=== PATIENT | female | born 1940 | race Caucasian/White ===

== ENCOUNTER → 2020-11-07 02:33 | Outpatient (CLI) | payer MEDICARE, SELFPAY ==
[2020-11-07 20:23] LABS: SARS-CoV-2 RNA PCR Negative
== END ==
PROVIDERS: PCP Internal Medicine; Visit Provider Internal Medicine Gastroenterology
DX: Z01.812 Encounter for preprocedural laboratory examination (principal); Z20.822 Contact with and (suspected) exposure to COVID-19
CPT/HCPCS: C9803; U0003; U0005

== ENCOUNTER 2020-11-10 01:25 | Day surgery (SDC) | payer MEDICARE, OTHER, SELFPAY ==
[2020-11-05 14:43] VITALS: BMI 30.2
[2020-11-10 08:28] VITALS: BP 152/96; PULSE 102; RESP 18; TEMP 36.4; O2SAT 99
--- NOTE | 2020-11-10 08:36 | WPDANESEPPF ---
Anes - Initial Pre Proc Eval Procedure: Operation Date: 11/10/20 09:30 Proposed Procedures p Esophagogastroduodenoscopy & Colonoscopy - Tian Melendez MD Date/Time: 11/10/20 08:36 Surgeon: Tian Melendez MD Pre Op Diagnosis: Iron Def. Anemia Patient Data Age: 80 Gender: F Height: 5 ft 4 in Weight: 77.5 kg Last Vital Signs Temp 36.4 C 11/10/20 08:28 Pulse 102 H 11/10/20 08:28 Resp 18 11/10/20 08:28 BP 152/96 H 11/10/20 08:28 Pulse Ox 99 11/10/20 08:28 Allergies Allergy/AdvReac Type Severity Reaction Status Date / Time No Known Allergies Allergy Verified 11/10/20 08:10 Home Medications Medication Instructions Recorded Confirmed Type aspirin [Adult Low Dose Aspirin] 81 mg PO DAILY 06/16/19 11/10/20 History hizwflwv-ojar-YE-calcium-mins 1 tablet PO DAILY 06/16/19 11/10/20 History [Women's One Daily] vit C,E,zinc,copper-gsggk1c 250 1 cap PO DAILY 07/25/19 11/10/20 History mg-lutein 5 mg-zeaxanthin 1 mg capsule omega-3 fatty acids 1,000 mg 2,000 mg PO BID cap 02/04/20 11/10/20 History capsule enalapril maleate 5 mg tablet 5 mg PO BID #180 tablet 05/11/20 11/10/20 Rx levothyroxine 25 mcg tablet See Rx Instructions .ROUTE 07/30/20 11/10/20 Rx .COMPLEX #90 tablet metoprolol succinate 25 mg See Rx Instructions .ROUTE 09/18/20 11/10/20 Rx tablet,extended release 24 hr .COMPLEX #90 tablet metoprolol succinate 50 mg See Rx Instructions .ROUTE 09/18/20 11/10/20 Rx tablet,extended release 24 hr .COMPLEX #90 tablet rosuvastatin 40 mg tablet See Rx Instructions .ROUTE 09/18/20 11/10/20 Rx .COMPLEX #90 tablet famotidine 40 mg tablet See Rx Instructions .ROUTE BID 11/05/20 11/10/20 Rx #180 tablet ferrous sulfate 325 mg (65 mg 325 mg PO BID #180 tablet 11/05/20 11/10/20 Rx iron) tablet sod picosulf 10 mg-magnes 3.5 160 ml PO BID #160 ml 11/05/20 11/10/20 Rx gram-citric 12 gram/160 mL oral solution Patient hx anesthesia problems: none Family hx anesthesia problems: none PMFSH Past Medical History Medical History Anemia Benign essential hypertension BMI 30.0-30.9,adult BMI 31.0-31.9,adult Cavernous hemangiomas Cystocele Elevated homocysteine Encounter for Medicare annual wellness exam Encounter for routine adult health examination with abnormal findings Encounter for routine adult health examination without abnormal findings Encounter for screening mammogram for malignant neoplasm of breast Encounter for screening mammogram for malignant neoplasm of breast Gallbladder sludge GERD (gastroesophageal reflux disease) Grade II diastolic dysfunction Hyperlipidemia Hypothyroidism Hypothyroidism (acquired) Iron deficiency anemia Macular degeneration Microscopic hematuria 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 drug therapy Pre-diabetes Pulmonary hypertension PVCs (premature ventricular contractions) Ventricular tachycardia Vitamin D deficiency Surgical History Surgical History S/P total hysterectomy Family History Family History Father Cancer Mother Hypertension Sibling Lung cancer Son Kidney stones Unknown Diabetes mellitus Cancer Social History Social History Smoking status: Never smoker Second hand tobacco smoke exposure: No Alcohol intake: never Substance use: never Substance use type: does not use Living arrangements: with family Spiritual care concerns: No Anes - Eval Final PreProcedure Day of Procedure 11/10/20 08:36 Patient weight: overweight Heart: regular rate and rhythm Lungs: clear to auscultation Airway: Mallampati scale class II Neurological: alert and oriented Last oral intake: >/= 8 hours ASA classification: III Emergent: no Anesthetic plan: proceed Anesthesia t
[2020-11-10] MEDS: LACTATED RINGERS 1,000 ML 150 ML IV CONT (08:37)
--- NOTE | 2020-11-10 09:09 | PM.HPGS ---
History of Present Illness History of Present Illness Consent: Risks, benefits, and alternatives have been discussed and questions answered. Patient agrees to proceed with procedure. Chief complaint: Iron Def. Anemia Narrative: Ethel Woods is a 80 year old female With iron deficiency anemia Review of Systems Review of Systems: All systems reviewed & are unremarkable except as noted in HPI and below PMFSH Past Medical History Medical History Anemia Benign essential hypertension BMI 30.0-30.9,adult BMI 31.0-31.9,adult Cavernous hemangiomas Cystocele Elevated homocysteine Encounter for Medicare annual wellness exam Encounter for routine adult health examination with abnormal findings Encounter for routine adult health examination without abnormal findings Encounter for screening mammogram for malignant neoplasm of breast Encounter for screening mammogram for malignant neoplasm of breast Gallbladder sludge GERD (gastroesophageal reflux disease) Grade II diastolic dysfunction Hyperlipidemia Hypothyroidism Hypothyroidism (acquired) Iron deficiency anemia Macular degeneration Microscopic hematuria 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 drug therapy Pre-diabetes Pulmonary hypertension PVCs (premature ventricular contractions) Ventricular tachycardia Vitamin D deficiency Surgical History Surgical History S/P total hysterectomy Family History Family History Father Cancer Mother Hypertension Sibling Lung cancer Son Kidney stones Unknown Diabetes mellitus Cancer Social History Social History Smoking status: Never smoker Second hand tobacco smoke exposure: No Alcohol intake: never Substance use: never Substance use type: does not use Living arrangements: with family Spiritual care concerns: No Meds Home Medications and Allergies Home Medications Medication Instructions Recorded Confirmed Type aspirin [Adult Low Dose Aspirin] 81 mg PO DAILY 06/16/19 11/10/20 History vcqdgfew-uwyo-YI-calcium-mins 1 tablet PO DAILY 06/16/19 11/10/20 History [Women's One Daily] vit C,E,zinc,copper-ohqvt9s 250 1 cap PO DAILY 07/25/19 11/10/20 History mg-lutein 5 mg-zeaxanthin 1 mg capsule omega-3 fatty acids 1,000 mg 2,000 mg PO BID cap 02/04/20 11/10/20 History capsule enalapril maleate 5 mg tablet 5 mg PO BID #180 tablet 05/11/20 11/10/20 Rx levothyroxine 25 mcg tablet See Rx Instructions .ROUTE 07/30/20 11/10/20 Rx .COMPLEX #90 tablet metoprolol succinate 25 mg See Rx Instructions .ROUTE 09/18/20 11/10/20 Rx tablet,extended release 24 hr .COMPLEX #90 tablet metoprolol succinate 50 mg See Rx Instructions .ROUTE 09/18/20 11/10/20 Rx tablet,extended release 24 hr .COMPLEX #90 tablet rosuvastatin 40 mg tablet See Rx Instructions .ROUTE 09/18/20 11/10/20 Rx .COMPLEX #90 tablet famotidine 40 mg tablet See Rx Instructions .ROUTE BID 11/05/20 11/10/20 Rx #180 tablet ferrous sulfate 325 mg (65 mg 325 mg PO BID #180 tablet 11/05/20 11/10/20 Rx iron) tablet sod picosulf 10 mg-magnes 3.5 160 ml PO BID #160 ml 11/05/20 11/10/20 Rx gram-citric 12 gram/160 mL oral solution Allergies Allergy/AdvReac Type Severity Reaction Status Date / Time No Known Allergies Allergy Verified 11/10/20 08:10 Vital Signs Vital Signs - 24 hr 11/10/20 08:28 Temperature 36.4 C Pulse Rate 102 H Respiratory Rate 18 Blood Pressure 152/96 H Pulse Oximetry 99 Exam Const: General: alert Orientation/consciousness: patient oriented x3 Resp: Auscultation: clear to auscultation bilaterally Cardio: Rhythm: regular rhythm GI: GI Palp: Yes Soft to palpation and No Tenderness to palpation present (GI) Neuro: General: patient oriented x3 Assessment and Plan A
[2020-11-10 09:50] VITALS: BP 83/62; PULSE 70; RESP 19; O2SAT 96
[2020-11-10 10:00] VITALS: BP 103/67; PULSE 68; RESP 17; O2SAT 96
[2020-11-10 10:10] VITALS: BP 113/68; PULSE 72; RESP 18; O2SAT 96
[2020-11-10 10:18] VITALS: BP 135/72; PULSE 71; RESP 18; O2SAT 97
== END 2020-11-10 10:20 | disposition home or self-care (01) ==
PROVIDERS: PCP Internal Medicine; Visit Provider Internal Medicine Gastroenterology
PROC: 0DJ08ZZ Inspection of Upper Intestinal Tract, Via Natural or Artificial Opening Endoscopic (ICD-10-PCS; CPT 43235; principal; 2020-11-10 09:30)
DX: D50.9 Iron deficiency anemia, unspecified (principal); K44.9 Diaphragmatic hernia without obstruction or gangrene; E78.5 Hyperlipidemia, unspecified; I11.9 Hypertensive heart disease without heart failure; E03.9 Hypothyroidism, unspecified; R73.03 Prediabetes; K21.9 Gastro-esophageal reflux disease without esophagitis; H35.30 Unspecified macular degeneration; E55.9 Vitamin D deficiency, unspecified; I27.20 Pulmonary hypertension, unspecified
CPT/HCPCS: 45378; 43239; 88305; J2704; J7120

== ENCOUNTER 2020-11-11 08:01 | Outpatient (CLI) | payer MEDICARE, OTHER, SELFPAY ==
--- NOTE | ~2020-11-11 | CT_ITS ---
EXAMINATION: CT abdomen pelvis wo con DATE: 11/11/2020 08:25 INDICATION: Microscopic hematuria TECHNIQUE: Computed tomography (CT) of the abdomen and pelvis was performed without intravenous contr ast. The dose-length product was 367.80 mGy-cm. Automated exposure control and iterative reconstructi on technique were employed. COMPARISON: Ultrasound dated 06/16/2019. FINDINGS: Lung bases are unremarkable. Heart size normal. No significant pleural or pericardial effus ion. Mild atherosclerosis without aneurysm. No lymphadenopathy. There are multiple liver masses, larg est in the right hepatic lobe measuring 3.3 x 2.7 cm. Moderate size hiatal hernia. The spleen, adrena l glands, pancreas are unremarkable. There are multiple parapelvic cysts of the kidneys. There are no renal stones or significant hydronephrosis. Bladder is unremarkable. Nonobstructive bowel gas patter n. No abnormal pelvic masses or fluid collections. Moderate lumbar spondylosis with dextroscoliosis. There is osteoarthritis of the hips. No lytic or blastic lesions. IMPRESSION: 1. No findings to account for hematuria. Bilateral parapelvic cysts. 2: Multiple liver masses, largest measuring up to 3.3 cm greatest axial dimension. There are at least 4 masses identified scattered throughout the liver. Recommend further evaluation with dynamic contra st-enhanced CT or MRI. 3: Moderate size hiatal hernia. Reviewed, dictated and finalized at location B. IMPRESSION: 1. No findings to account for hematuria. Bilateral parapelvic cysts. 2: Multiple liver masses, largest measuring up to 3.3 cm greatest axial dimensi on. There are at least 4 masses identified scattered throughout the liver. Karlo mmend further evaluation with dynamic contrast-enhanced CT or MRI. 3: Moderate size hiatal hernia.
== END 2020-11-11 08:02 | disposition home or self-care (01) ==
PROVIDERS: PCP Internal Medicine; Visit Provider Internal Medicine
DX: R31.29 Other microscopic hematuria (principal); K44.9 Diaphragmatic hernia without obstruction or gangrene; M16.0 Bilateral primary osteoarthritis of hip; R16.0 Hepatomegaly, not elsewhere classified; M47.816 Spondylosis without myelopathy or radiculopathy, lumbar region
CPT/HCPCS: 74176

== ENCOUNTER 2021-04-09 11:07 | Outpatient (CLI) | payer MEDICARE, OTHER, SELFPAY ==
--- NOTE | ~2021-04-09 | US_ITS ---
EXAMINATION: US thyroid EXAM DATE: 04/09/2021 11:51 INDICATION: E04.1 - Nontoxic single thyroid nodule. TECHNIQUE: Multiple grayscale and Doppler images of the thyroid were obtained (by a technologist who performed the scan) and subsequently reviewed. Individual nodules and recommendations may be reporte d in accordance with TI-RADS system as designated by the 2017 ACR White Paper TI-RADS committee. The re is no prior study for comparison. FINDINGS: Right thyroid lobe measures 4.5 x 1.2 x 1.4 cm and the left measuring 4.5 x 1.3 x 0.9 cm. Diffusely h eterogeneous thyroid parenchyma with possible right thyroid lobe nodule measuring 1.9 x 1.0 cm. IMPRESSION: Heterogeneous thyroid parenchyma with possible right thyroid lobe nodule. Recommend one -year follow-up ultrasound. Reviewed, dictated and finalized at location A. IMPRESSION: Heterogeneous thyroid parenchyma with possible right thyroid lobe n odule. Recommend one-year follow-up ultrasound.
== END 2021-04-09 11:08 | disposition home or self-care (01) ==
PROVIDERS: PCP Internal Medicine; Visit Provider Internal Medicine
DX: E04.1 Nontoxic single thyroid nodule (principal)
CPT/HCPCS: 76536

== ENCOUNTER 2021-05-08 07:27 | Emergency (ER) | payer MEDICARE, OTHER, SELFPAY ==
--- NOTE | ~2021-05-08 | XR_ITS ---
EXAMINATION: XR chest 2V EXAM DATE: 05/08/2021 07:47 INDICATION: Chest pain down left shoulder, arrhythmia. Left shoulder pain. TECHNIQUE: Frontal and lateral projections of the chest obtained and reviewed. Comparison is made to prior examination from 09/16/2018. FINDINGS: There is moderate sliding gastroesophageal hiatal hernia. The lungs are clear. There are n o pleural effusions. The cardiomediastinal silhouette is within normal limits. There is no pneumoth orax suspected. The bones and soft tissues are unremarkable. There is no significant interval [place]. IMPRESSION: No acute cardiopulmonary findings. Moderate hiatal hernia. Reviewed, dictated and finalized at location A.
[2021-05-08 07:30] VITALS: BP 192/109; PULSE 130; RESP 20; TEMP 36.6; O2SAT 97
--- NOTE | 2021-05-08 07:36 | ECG_ITS ---
Measurements Intervals [place] Rate: 81 P: 29 NC: 150 QRS: 3 QRSD: 73 T: 12 QT: 345 QTc: 402 Interpretive Statements SINUS RHYTHM VENTRICULAR PREMATURE COMPLEX LOW QRS VOLTAGE IN PRECORDIAL LEADS CONSIDER INFERIOR INFARCT, AGE INDETERMINATE BORDERLINE ST ABNORMALITY- ANTEROLAT/HIGH LAT LEADS BASELINE ARTIFACT- I, III, AVR, AVL, AVF ABNORMAL ECG Electronically Signed On 05-08-2021 14:13:13 CDT by Zeyad Keen D.O.
[2021-05-08 07:46] LABS: Basophils Percent Auto 0.5 % (0.2-1.2); Eosinophils Absolute Auto 0.4 K/mm3 (0-0.3); Eosinophils Percent Auto 5.7 % (0-4.4); Hematocrit 44.5 % (37.0-47.0); Hemoglobin 14.4 g/dL (12.0-15.0); Immature Granulocyte Absolute 0.02 K/mm3 (0.00-0.031); Immature Granulocyte Percent A 0.3 % (0-0.5); Lymphocytes Absolute Auto 3.54 K/mm3 (0.9-3.2); Lymphocytes Percent Auto 47.1 % (18.3-44.2); Mean Corpuscular HGB Conc 32.4 g/dl (32-36); Mean Corpuscular Hemoglobin 31.4 pg (26-34); Mean Corpuscular Volume 97.2 fl (80-100); Mean Platelet Volume 11.4 fl (7.4-10.4); Monocytes Absolute Auto 0.5 K/mm3 (0.1-0.6); Monocytes Percent Auto 7.2 % (2.6-8.5); Neutrophils Absolute Auto 2.9 K/mm3 (1.3-6.7); Neutrophils Percent Auto 39.2 % (45.5-73.1); Platelet Count Result 168 k/mm3 (150-375); Red Blood Count 4.58 M/mm3 (4.2-5.4); Red Cell Distribution Width 13.8 % (11.5-14.5); White Blood Count 7.5 K/mm3 (4.5-10.0)
[2021-05-08 07:59] LABS: Anion Gap 9 mmol/L (8-16); Blood Urea Nitrogen 17 mg/dL (7-17); Calcium 9.3 mg/dL (8.4-10.2); Carbon Dioxide 26 mmol/L (22-30); Chloride 107 mmol/L (98-107); Estimated CRCL calculation 58 ml/min; Estimated Glomerular Filt Rate > 60; Glucose 121 mg/dL (65-110); Potassium 3.5 mmol/L (3.4-5.0); Sodium 142 mmol/L (137-145)
[2021-05-08 08:03] LABS: INR 0.9; Prothrombin Time 12.5 Seconds (11.1-14.7)
[2021-05-08 08:04] LABS: Partial Thromboplastin Time 31.7 SECONDS (22.3-36.8)
[2021-05-08 08:11] LABS: Troponin I < 0.012 ng/mL (0.000-0.034)
--- NOTE | 2021-05-08 08:17 | ED.ARRPALP ---
HPI - Arrhythmia/Palpitations General Chief Complaint: Arrhythmia/Palpitations Stated Complaint: cp, heart racing Time Seen by Provider: 05/08/21 07:43 History of Present Illness HPI narrative: Patient presents with palpitations left arm pain and left leg pain. Patient reports she woke up with her her symptoms she took her blood pressure and noted her heart rate was in the 120s and she had elevated blood pressure. She took her home enalapril and metoprolol and came to the ER for evaluation. At the time my evaluation she reports feeling much improved and her symptoms have resolved she is feeling palpitations and her pain has gone away. Reports yesterday she felt well she denies any recent fevers, cough, congestion. She denies any associated shortness of breath Related Data Home Medications Medication Instructions Recorded Confirmed Women's One Daily 1 tablet PO DAILY 06/16/19 03/31/21 aspirin [Adult Low Dose Aspirin] 81 mg PO DAILY 06/16/19 03/31/21 vit C,E,zinc,copper-dsnjc2e 250 1 cap PO DAILY 07/25/19 03/31/21 mg-lutein 5 mg-zeaxanthin 1 mg capsule omega-3 fatty acids 1,000 mg 2,000 mg PO BID cap 02/04/20 03/31/21 capsule Allergies Allergy/AdvReac Type Severity Reaction Status Date / Time No Known Allergies Allergy Verified 03/31/21 09:36 Review of Systems Review of Systems: CONSTITUTIONAL: Denies fever, chills, or sweats. EYES: Denies visual changes, redness, or discharge. ENT: Denies rhinorrhea, congestion, sore throat, or otalgia. CARDIOVASCULAR: Denies chest pain, palpitations, or edema. RESPIRATORY: Denies cough or dyspnea. GASTROINTESTINAL: Denies abdominal pain, nausea, vomiting, or diarrhea. GENITOURINARY: Denies dysuria or hematuria. SKIN: Denies rash or itching. MUSCULOSKELETAL: Denies back pain, active joint pain, or myalgia. NEUROLOGIC: Denies headache, numbness, dizziness, or weakness. PSYCHIATRIC: Denies anxiety or depression. All systems reviewed & are unremarkable except as noted in HPI and below PMFSH Past Medical History Medical History Anemia Benign essential hypertension BMI 30.0-30.9,adult BMI 31.0-31.9,adult Cavernous hemangiomas Chest pain Colon cancer screening Cystocele Elevated homocysteine Encounter for Medicare annual wellness exam Encounter for routine adult health examination with abnormal findings Encounter for routine adult health examination without abnormal findings Encounter for screening mammogram for malignant neoplasm of breast Encounter for screening mammogram for malignant neoplasm of breast Gallbladder sludge GERD (gastroesophageal reflux disease) Grade II diastolic dysfunction Hyperlipidemia Hypothyroidism Hypothyroidism (acquired) Iron deficiency anemia Macular degeneration Microscopic hematuria On termination clerk drug therapy On snf drug therapy Pre-diabetes Pulmonary hypertension PVCs (premature ventricular contractions) Thyroid nodule Ventricular tachycardia Vitamin D deficiency Surgical History Surgical History S/P total hysterectomy Family History Family History Father Cancer Mother Hypertension Sibling Lung cancer Son Kidney stones Unknown Diabetes mellitus Cancer Social History Social History Smoking status: Never smoker Second hand tobacco smoke exposure: No Alcohol intake: never Substance use: never Substance use type: does not use Spiritual care concerns: No Exam Narrative: GENERAL: Well-appearing, well-nourished, and in no acute distress. HEAD: Normocephalic, atraumatic. EYES: PERRLA and EOMI. ENT: Nares clear, no rhinorrhea or epistaxis. Mucous membranes moist. NECK: Supple. No masses. No JVD CHEST: Clear to auscultation. No respiratory distress. No wheezes rales or rhonchi HEA
[2021-05-08 08:22] VITALS: BP 126/79; PULSE 77; RESP 19; O2SAT 95
[2021-05-08] MEDS: ASPIRIN 81 MG CHEWABLE TABLET 324 MG PO (08:22)
[2021-05-08 09:55] VITALS: BP 123/81; PULSE 74; RESP 18; O2SAT 98
== END 2021-05-08 09:56 | disposition home or self-care (01) ==
PROVIDERS: Emergency Provider Emergency Medicine; PCP Internal Medicine
DX: R00.0 Tachycardia, unspecified (principal); I10 Essential (primary) hypertension; E78.5 Hyperlipidemia, unspecified; E03.9 Hypothyroidism, unspecified; D50.9 Iron deficiency anemia, unspecified; H35.30 Unspecified macular degeneration; R73.03 Prediabetes; K21.9 Gastro-esophageal reflux disease without esophagitis; E55.9 Vitamin D deficiency, unspecified; M79.602 Pain in left arm
CPT/HCPCS: 36415; 71046; 80048; 84484; 85025; 85610; 85730; 93005; 99284; A9270

== ENCOUNTER → 2021-11-12 02:49 | Outpatient (CLI) | payer MEDICARE, OTHER, SELFPAY ==
[2021-11-12 11:37] LABS: SARS-CoV-2 RNA PCR Positive
== END ==
PROVIDERS: PCP Internal Medicine; Visit Provider Internal Medicine
DX: U07.1 COVID-19 (principal); R68.89 Other general symptoms and signs
CPT/HCPCS: C9803; U0003; U0005

== ENCOUNTER 2022-02-22 14:04 | Emergency (ER) | payer MEDICARE, OTHER, SELFPAY ==
--- NOTE | ~2022-02-22 | XR_ITS ---
EXAMINATION: XR finger 3rd RT min 2V DATE: 02/22/2022 15:05 INDICATION: Right hand third digit laceration. TECHNIQUE: 3 views of right hand third digit were obtained. COMPARISON: None. FINDINGS: There is ulnar subluxation of third distal phalanx with respect to the middle phalanx. No f racture. There is severe osteoarthritis of third distal interphalangeal joint and mild osteoarthritis of third proximal interphalangeal joint. No radiopaque foreign body. IMPRESSION: 1. Polyarticular osteoarthritis. Reviewed, dictated and finalized at location A.
[2022-02-22 14:30] VITALS: BP 138/73; PULSE 79; RESP 16; TEMP 36.5; O2SAT 96
[2022-02-22] MEDS: TETANUS,DIPHTHERIA,AC PERTUSSIS ADULT (0.5 ML) BOOSTRIX IM (15:09)
--- NOTE | 2022-02-22 15:39 | ED.WOUNDLAC ---
HPI - Wound/Laceration General Chief Complaint: Wound/Laceration Stated Complaint: R. middle finger lac Time Seen by Provider: 02/22/22 14:40 Source: patient and RN notes reviewed Mode of arrival: ambulatory Limitations: no limitations History of Present Illness HPI narrative: This is a right hand dominant 81 year old female who presents for evaluation right 3rd finger injury. She states she was trying to help her wash the car. Her finger got caught in between the car door and metal objection. She had 2 lacerations to her finger and her primary care provider sent her to ER for care. She has pain with movement of her finger. She is unsure of her last tetanus. She denies numbness or tingling. Onset (ago): hour(s) (1) Location: other (finger) Extremity Location: Right: hand Patient tetanus UTD: No Context: accidental Associated symptoms: pain Treatments prior to arrival: bandage Related Data Home Medications Medication Instructions Recorded Confirmed aspirin 81 mg tablet,delayed 81 mg PO DAILY 06/16/19 02/01/22 release (Adult Low Dose Aspirin) multivit-iron 18 mg-folic acid 400 1 tablet PO DAILY 06/16/19 02/01/22 mcg-calcium 500 mg-minerals tablet (Women's One Daily) vit C,E,zinc,copper-cskme8v 250 1 cap PO DAILY 07/25/19 02/01/22 mg-lutein 5 mg-zeaxanthin 1 mg capsule (Ocuvite Adult 50 Plus) omega-3 fatty acids 1,000 mg 2,000 mg PO BID 02/04/20 02/01/22 capsule (Fish Oil Concentrate) Allergies Allergy/AdvReac Type Severity Reaction Status Date / Time No Known Allergies Allergy Verified 02/22/22 14:43 Review of Systems Constitutional: Constitutional: Denies chills Musculoskeletal: Musculoskeletal: Reports arthralgias PMFSH Past Medical History Medical History Anemia Atrial tachycardia Benign essential hypertension BMI 30.0-30.9,adult BMI 30.0-30.9,adult BMI 31.0-31.9,adult Cavernous hemangiomas Chest heaviness Chest pain Colon cancer screening Cystocele DJD (degenerative joint disease) Elevated homocysteine Encounter for Medicare annual wellness exam Encounter for routine adult health examination with abnormal findings Encounter for routine adult health examination without abnormal findings Encounter for screening mammogram for malignant neoplasm of breast Encounter for screening mammogram for malignant neoplasm of breast Follow up Gallbladder sludge GERD (gastroesophageal reflux disease) Grade II diastolic dysfunction Hyperlipidemia Hypothyroidism Hypothyroidism (acquired) Iron deficiency anemia Macular degeneration Medial epicondylitis, left elbow Microscopic hematuria 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 Pre-diabetes PVCs (premature ventricular contractions) Thyroid nodule Ventricular tachycardia Vitamin D deficiency Surgical History Surgical History S/P total hysterectomy Family History Family History Father Cancer Mother Hypertension Sibling Lung cancer Son Kidney stones Unknown Diabetes mellitus Cancer Social History Social History Smoking status: Never smoker Second hand tobacco smoke exposure: No Alcohol intake: never Substance use: never Substance use type: does not use Spiritual care concerns: No Exam Const: General: no acute distress and alert Nutritional Appearance: well nourished Orientation/consciousness: patient oriented x3 Limitations: no limitations HENMT: Head: normal to inspection Eyes: EOM: EOMs intact bilaterally Resp: Effort & Inspection: normal respiratory effort Skin: Wounds: wounds noted (right 3rd finger, see MSK) Neuro: General: patient oriented x3 and moves all extremities Extrem: Other: right 3rd finger with 2 laceration of dorsum, proximal lacera
[2022-02-22 16:46] VITALS: BP 125/82; PULSE 62; RESP 18; O2SAT 100
== END 2022-02-22 16:47 | disposition home or self-care (01) ==
PROVIDERS: Emergency Provider General Practice; PCP Internal Medicine
DX: S61.212A Laceration without foreign body of right middle finger without damage to nail, initial encounter (principal); M19.90 Unspecified osteoarthritis, unspecified site; D64.9 Anemia, unspecified; I10 Essential (primary) hypertension; K21.9 Gastro-esophageal reflux disease without esophagitis; E03.9 Hypothyroidism, unspecified; E78.5 Hyperlipidemia, unspecified; W26.8XXA Contact with other sharp object(s), not elsewhere classified, initial encounter; Z23 Encounter for immunization
CPT/HCPCS: 12002; 73140; 90715; 99283

== ENCOUNTER 2022-06-21 12:34 | Outpatient (CLI) | payer MEDICARE, OTHER, SELFPAY ==
--- NOTE | ~2022-06-21 | XR_ITS ---
EXAM: XR shoulder LT min 2V DATE: 06/21/2022 12:55 HISTORY: M25.512 - Pain in left shoulder, GENERAL, NO INJURY, . COMPARISON: None available. FINDINGS: Decreased mineralization. No fracture or dislocation. No lytic or blastic lesion. Mild AC joint hypertrophy. Subcortical cystic changes in the superolateral humeral head. No erosion or perios teal change. Soft tissues within normal limits. IMPRESSION: Osteopenia. Mild degenerative changes at the AC joint and glenohumeral joint in the left shoulder. Reviewed, dictated and finalized at location K. E LINER IMPRESSION: Osteopenia. Mild degenerative changes at the AC joint and glenohume ral joint in the left shoulder.
== END 2022-06-21 12:35 | disposition home or self-care (01) ==
LOC: ANHIMG 12:38
PROVIDERS: PCP Internal Medicine; Visit Provider Internal Medicine
DX: M85.812 Other specified disorders of bone density and structure, left shoulder (principal); M19.012 Primary osteoarthritis, left shoulder
CPT/HCPCS: 73030

== ENCOUNTER 2023-02-21 09:33 | Outpatient (CLI) | payer MEDICARE, OTHER, SELFPAY ==
--- NOTE | ~2023-02-21 | CT_ITS ---
EXAMINATION: CT abdomen pelvis w con INDICATION: Diarrhea, unspecified TECHNIQUE: Computed tomographic images of the abdomen and pelvis were obtained after the administrati on of 100 cc of Omnipaque 350 intravenous contrast. The dose-length product (DLP) was 717.77 mGy-cm. Automated exposure control and iterative reconstruction technique were employed. COMPARISON: 11/11/2020 FINDINGS: There is mild dependent atelectasis at the visualized lung bases. Cardiomegaly is noted. Th ere is a small sliding hiatal hernia. There are multiple liver lesions. The largest measures 2.9 cm i n the right hepatic lobe and demonstrates interrupted peripheral nodular enhancement, consistent with a hemangioma. A smaller masses likely reflect cysts or hemangiomas. No suspicious liver mass is iden tified.. The spleen, pancreas, gallbladder, and adrenal glands are normal. There are peripelvic cysts of the kidneys. Hypoattenuating lesions in the kidneys, measuring up to 6 mm on the right, are too s mall to characterize but likely represent cysts. No pathologically enlarged abdominal or pelvic lymph nodes are identified. No free intraperitoneal gas or evidence of bowel obstruction. The appendix is normal. There is severe thoracic and lumbar spondylosis. There is an umbilical hernia containing fat. IMPRESSION: 1. No CT correlate for the patient's symptoms. Reviewed, dictated and finalized at location L.
[2023-02-21 10:43] LABS: Basophils Percent Auto 0.7 % (0.2-1.2); Eosinophils Absolute Auto 0.2 K/mm3 (0-0.3); Eosinophils Percent Auto 2.7 % (0-4.4); Hematocrit 43.6 % (37.0-47.0); Hemoglobin 13.9 g/dL (12.0-15.0); Immature Granulocyte Absolute 0.02 K/mm3 (0.00-0.031); Immature Granulocyte Percent A 0.4 % (0-0.5); Lymphocytes Absolute Auto 1.82 K/mm3 (0.9-3.2); Lymphocytes Percent Auto 32.7 % (18.3-44.2); Mean Corpuscular HGB Conc 31.9 g/dl (32-36); Mean Corpuscular Hemoglobin 29.4 pg (26-34); Mean Corpuscular Volume 92.4 fl (80-100); Mean Platelet Volume 12.1 fl (7.4-10.4); Monocytes Absolute Auto 0.4 K/mm3 (0.1-0.6); Monocytes Percent Auto 7.4 % (2.6-8.5); Neutrophils Absolute Auto 3.1 K/mm3 (1.3-6.7); Neutrophils Percent Auto 56.1 % (45.5-73.1); Platelet Count Result 164 k/mm3 (150-375); Red Blood Count 4.72 M/mm3 (4.2-5.4); Red Cell Distribution Width 13.5 % (11.5-14.5); White Blood Count 5.6 K/mm3 (4.5-10.0)
[2023-02-21 10:49] LABS: Estimated Glomerular Filt Rate > 60
[2023-02-21 10:58] LABS: Alanine Aminotransferase 106 U/L (6-35); Albumin Level 3.8 g/dL (3.5-5.1); Alkaline Phosphatase 34 U/L (38-126); Anion Gap 3 mmol/L (8-16); Aspartate Amino Transferase 90 U/L (14-36); Bilirubin,Total 0.5 mg/dL (0.2-1.3); Blood Urea Nitrogen 9 mg/dL (7-17); Calcium 8.7 mg/dL (8.4-10.2); Carbon Dioxide 28 mmol/L (22-30); Chloride 106 mmol/L (98-107); Estimated Glomerular Filt Rate > 60; Glucose 99 mg/dL (65-110); Sodium 137 mmol/L (137-145)
== END 2023-02-21 09:34 | disposition home or self-care (01) ==
PROVIDERS: PCP Internal Medicine; Visit Provider Internal Medicine
DX: R19.7 Diarrhea, unspecified (principal)
CPT/HCPCS: 36415; 74177; 80053; 85025; Q9967

== ENCOUNTER 2023-04-07 00:54 | Day surgery (SDC) | payer MEDICARE, OTHER, SELFPAY ==
[2023-03-24 14:28] VITALS: BMI 29.5
--- NOTE | 2023-04-06 15:31 | PM.HPGS ---
History of Present Illness History of Present Illness Consent: Risks, benefits, and alternatives have been discussed and questions answered. Patient agrees to proceed with procedure. Chief complaint: GERD Narrative: Ethel Woods is a 82 year old female referred for investigation of acid reflux. Six years ago she had an EGD that revealed a small hiatal hernia and mild reflux changes. She had been taking famotidine but that is currently on hold. Review of Systems Review of Systems: All systems reviewed & are unremarkable except as noted in HPI and below PMFSH Past Medical History Medical History Anemia Atrial tachycardia Benign essential hypertension BMI 28.0-28.9,adult BMI 29.0-29.9,adult BMI 30.0-30.9,adult BMI 30.0-30.9,adult BMI 31.0-31.9,adult Cavernous hemangiomas Change in bowel habits Chest heaviness Chest pain Colon cancer screening Cystocele DJD (degenerative joint disease) Elevated homocysteine Encounter for Medicare annual wellness exam Encounter for routine adult health examination with abnormal findings Encounter for routine adult health examination without abnormal findings Encounter for screening mammogram for malignant neoplasm of breast Encounter for screening mammogram for malignant neoplasm of breast FHx: abdominal aortic aneurysm Follow up Gallbladder sludge GERD (gastroesophageal reflux disease) Grade II diastolic dysfunction Heart palpitations History of vitamin D deficiency Hyperlipidemia Hypothyroidism Hypothyroidism (acquired) Iron deficiency anemia Kidney lesion Bilateral Left shoulder pain Liver lesion Hemangioma Macular degeneration Medial epicondylitis, left elbow Microscopic hematuria Neck pain on left side On fci drug therapy On rodent exterminator drug therapy Pre-diabetes PVCs (premature ventricular contractions) Thyroid nodule Ventricular tachycardia Vitamin D deficiency Surgical History Surgical History Hx of hysterectomy S/P total hysterectomy Family History Family History Father Cancer Mother Hypertension Sibling Lung cancer Son Kidney stones Unknown Diabetes mellitus Cancer Social History Social History Smoking status: Never smoker Second hand tobacco smoke exposure: No Alcohol intake: current Alcohol use details: socially Substance use: never Substance use type: does not use Lack of Transportation: No Lack of Food: Never True Current Housing: I Have Housing Concerned About Future Housing: No Difficulty Paying Gas/Electric Bills: No Difficulty Paying for Meds: No Currently Unemployed: No Education: Trade/Vocational Certificate Difficulty w/ Childcare or Family Care: No Living arrangements: with family Gender identity (if verbalized by the patient): Female Spiritual care concerns: No Meds Home Medications and Allergies Home Medications Medication Instructions Recorded Confirmed Type aspirin 81 mg tablet,delayed 81 mg PO DAILY 06/16/19 03/24/23 History release (Adult Low Dose Aspirin) multivit-iron 18 mg-folic acid 400 1 tablet PO DAILY 06/16/19 03/24/23 History mcg-calcium 500 mg-minerals tablet (Women's One Daily) vit C,E,zinc,copper-[id number] 250 1 cap PO DAILY 07/25/19 03/24/23 History mg-lutein 5 mg-zeaxanthin 1 mg capsule (Ocuvite Adult 50 Plus) omega-3 fatty acids 1,000 mg 2,000 mg PO BID 02/04/20 03/24/23 History capsule (Fish Oil Concentrate) famotidine 40 mg tablet See Rx Instructions .Route BID 09/15/21 03/24/23 Rx #180 tabs metoprolol succinate 50 mg 75 mg PO BID #180 tabs 02/01/22 04/07/23 Rx tablet,extended release 24 hr cholecalciferol (vitamin D3) 50 50 mcg PO DAILY 11/04/22 03/24/23 History mcg (2,000 unit) capsule levothyroxine 50 mcg tab
[2023-04-07 09:01] VITALS: BP 152/85; PULSE 81; RESP 20; TEMP 36.2; O2SAT 97
[2023-04-07] MEDS: LACTATED RINGERS 1,000 ML 150 ML IV CONT (09:10)
--- NOTE | 2023-04-07 09:33 | WPDANESEPPF ---
Anes - Initial Pre Proc Eval Procedure: Operation Date: 04/07/23 10:00 Proposed Procedures p Esophagogastroduodenoscopy - Tian Melendez MD Date/Time: 04/07/23 09:33 Surgeon: Tian Melendez MD Pre Op Diagnosis: GERD Patient Data Age: 82 Gender: F Height: 1.63 m Weight: 78 kg Last Vital Signs Temp 36.2 C L 04/07/23 09:01 Pulse 81 04/07/23 09:01 Resp 20 04/07/23 09:01 BP 152/85 H 04/07/23 09:01 Pulse Ox 97 04/07/23 09:01 O2 Del Method Room Air 04/07/23 09:01 Allergies Allergy/AdvReac Type Severity Reaction Status Date / Time No Known Allergies Allergy Verified 04/07/23 09:00 Home Medications Medication Instructions Recorded Confirmed Type aspirin 81 mg tablet,delayed 81 mg PO DAILY 06/16/19 03/24/23 History release (Adult Low Dose Aspirin) multivit-iron 18 mg-folic acid 400 1 tablet PO DAILY 06/16/19 03/24/23 History mcg-calcium 500 mg-minerals tablet (Women's One Daily) vit C,E,zinc,copper-[id number] 250 1 cap PO DAILY 07/25/19 03/24/23 History mg-lutein 5 mg-zeaxanthin 1 mg capsule (Ocuvite Adult 50 Plus) omega-3 fatty acids 1,000 mg 2,000 mg PO BID 02/04/20 03/24/23 History capsule (Fish Oil Concentrate) famotidine 40 mg tablet See Rx Instructions .Route BID 09/15/21 03/24/23 Rx #180 tabs metoprolol succinate 50 mg 75 mg PO BID #180 tabs 02/01/22 04/07/23 Rx tablet,extended release 24 hr cholecalciferol (vitamin D3) 50 50 mcg PO DAILY 11/04/22 03/24/23 History mcg (2,000 unit) capsule levothyroxine 50 mcg tablet See Rx Instructions .Route 12/08/22 04/07/23 Rx .COMPLEX #90 tabs rosuvastatin 20 mg tablet 20 mg PO DAILY #90 tabs 03/15/23 03/24/23 Rx enalapril maleate 5 mg tablet See Rx Instructions .Route 04/03/23 Rx .COMPLEX #180 tabs Patient hx anesthesia problems: none Family hx anesthesia problems: none Results Review: All pre-operative results and documents have been reviewed as part of the pre-operative evaluation. [facility] Past Medical History Medical History Anemia Atrial tachycardia Benign essential hypertension BMI 28.0-28.9,adult BMI 29.0-29.9,adult BMI 30.0-30.9,adult BMI 30.0-30.9,adult BMI 31.0-31.9,adult Cavernous hemangiomas Change in bowel habits Chest heaviness Chest pain Colon cancer screening Cystocele DJD (degenerative joint disease) Elevated homocysteine Encounter for Medicare annual wellness exam Encounter for routine adult health examination with abnormal findings Encounter for routine adult health examination without abnormal findings Encounter for screening mammogram for malignant neoplasm of breast Encounter for screening mammogram for malignant neoplasm of breast FHx: abdominal aortic aneurysm Follow up Gallbladder sludge GERD (gastroesophageal reflux disease) Grade II diastolic dysfunction Heart palpitations History of vitamin D deficiency Hyperlipidemia Hypothyroidism Hypothyroidism (acquired) Iron deficiency anemia Kidney lesion Bilateral Left shoulder pain Liver lesion Hemangioma Macular degeneration Medial epicondylitis, left elbow Microscopic hematuria Neck pain on left side On skilled nursing drug therapy On terminal superintendent drug therapy Pre-diabetes PVCs (premature ventricular contractions) Thyroid nodule Ventricular tachycardia Vitamin D deficiency Surgical History Surgical History Hx of hysterectomy S/P total hysterectomy Family History Family History Father Cancer Mother Hypertension Sibling Lung cancer Son Kidney stones Unknown Diabetes mellitus Cancer Social History Social History Smoking status: Never smoker Second hand tobacco smoke exposure: No Alcohol intake: current Alcohol use details: socially Substance use: never Substance use
[2023-04-07 09:58] VITALS: BP 95/54; PULSE 68; RESP 15; O2SAT 95
[2023-04-07 10:08] VITALS: BP 100/62; PULSE 69; RESP 16; O2SAT 97
[2023-04-07 10:18] VITALS: BP 111/77; PULSE 70; RESP 20; O2SAT 96
== END 2023-04-07 10:25 | disposition home or self-care (01) ==
PROVIDERS: PCP Internal Medicine; Visit Provider Internal Medicine Gastroenterology
PROC: 0DJ08ZZ Inspection of Upper Intestinal Tract, Via Natural or Artificial Opening Endoscopic (ICD-10-PCS; CPT 43235; principal; 2023-04-07 10:00)
DX: K21.9 Gastro-esophageal reflux disease without esophagitis (principal); K22.2 Esophageal obstruction; K44.9 Diaphragmatic hernia without obstruction or gangrene; I11.9 Hypertensive heart disease without heart failure; I47.1 Supraventricular tachycardia; E78.5 Hyperlipidemia, unspecified; E03.9 Hypothyroidism, unspecified; I49.3 Ventricular premature depolarization; E55.9 Vitamin D deficiency, unspecified; Z79.82 Long term (current) use of aspirin
CPT/HCPCS: 43239; 88305; J2704; J7120

== ENCOUNTER 2023-07-24 11:46 | Outpatient (CLI) | payer MEDICARE, OTHER, SELFPAY ==
--- NOTE | ~2023-07-24 | XR_ITS ---
EXAMINATION: XR chest 2V w apical lordotic DATE: 07/24/2023 12:12 INDICATION: Abnormal weight loss. TECHNIQUE: Anteroposterior, apical lordotic, and lateral views of the chest on 4 radiographs were obt ained. COMPARISON: Chest 2 views 05/08/2021, CT abdomen and pelvis 02/21/2023 FINDINGS: There is mild atelectasis in left lower lung zone. No pleural effusion or pneumothorax. Car diomegaly is noted. There is a moderate-sized hiatal hernia. IMPRESSION: 1. Mild atelectasis in left lower lung zone. 2. Cardiomegaly. 3. Moderate-sized hiatal hernia. Reviewed, dictated and finalized at location A. TION CONSULTANT
== END 2023-07-24 11:47 | disposition home or self-care (01) ==
PROVIDERS: PCP Internal Medicine; Visit Provider Internal Medicine
DX: R63.4 Abnormal weight loss (principal); K44.9 Diaphragmatic hernia without obstruction or gangrene; I51.7 Cardiomegaly
CPT/HCPCS: 71047

== ENCOUNTER 2024-05-08 13:14 | Outpatient (CLI) | payer MEDICARE, OTHER, SELFPAY ==
--- NOTE | ~2024-05-08 | US_ITS ---
EXAMINATION: US renal BI DATE: 05/08/2024 14:30 INDICATION: Disorder of kidney and ureter TECHNIQUE: Multiple ultrasound grayscale images of the kidneys were obtained. COMPARISON: CT dated 02/21/2023 FINDINGS: The right kidney measures 11.2 x 5.9 x 5.7 cm. The left kidney measures 11.0 x 5.4 x 5.2 cm. The kidn eys demonstrate normal echogenicity. Again seen are anechoic parapelvic cysts at both kidneys measuri ng up to 4.0 x 1.8 x 1.8 cm at the right kidney and 2.1 x 1.4 x 1.2 cm on the left. There is no hydro nephrosis in either kidney. No stones identified. The bladder is normal. IMPRESSION: 1. Parapelvic cysts at both kidneys. No hydronephrosis. Reviewed, dictated and finalized at location A.
--- NOTE | ~2024-05-08 | US_ITS ---
EXAMINATION: US thyroid DATE: 05/08/2024 14:30 INDICATION: Thyroid nodule. TECHNIQUE: Multiple ultrasound images of the thyroid were obtained. COMPARISON: 04/09/2021. FINDINGS: The right thyroid lobe measures 2.0 x 1.1 x 1.3 cm. The left thyroid lobe measures 3.3 x 1.9 x 0.9 c m. There is heterogeneous echogenicity throughout the thyroid gland. Slightly hypoechoic, smoothly m arginated, wider than tall right thyroid nodule with mixed cystic and solid components to 2.0 cm, wit h fine punctate internal calcifications (TR 4). Normal vascular flow is present. IMPRESSION: Moderately suspicious 2.0 cm right thyroid nodule, recommend further evaluation with FNA. Heterogeneous thyroid gland as can be seen with Aron's and Graves' disease. Reviewed, dictated and finalized at location K. IMPRESSION: Moderately suspicious 2.0 cm right thyroid nodule, recommend further evaluation with FNA. Heterogeneous thyroid gland as can be seen with Aron's and Graves' disease .
== END 2024-05-08 13:15 | disposition home or self-care (01) ==
LOC: ANHIMG 13:15
PROVIDERS: PCP Internal Medicine; Visit Provider Internal Medicine
DX: E04.1 Nontoxic single thyroid nodule (principal); N28.9 Disorder of kidney and ureter, unspecified
CPT/HCPCS: 76536; 76775

== ENCOUNTER 2024-06-20 15:44 | Outpatient (CLI) | payer MEDICARE, OTHER, SELFPAY ==
--- NOTE | ~2024-06-20 | XR_ITS ---
Cervical Spine: AP, lateral, open-mouth views Clinical History: Pain Findings: The normal lordotic curve is maintained. No acute fracture evident. There is 2-3 mm retroli sthesis of C2 over C3. There is severe degenerative spurring at C2-C3 and C6-C7. There is moderate to moderate degenerative disc change in the remainder of the cervical spine. There is severe facet arth ropathy throughout the cervical spine. No instability evident on flexion or extension views. Pre-vert ebral soft tissues are unremarkable. Impression: Advanced degenerative spondylosis, as above. 2-3 mm retrolisthesis of C2 over C3. Reviewed, dictated and finalized at location M. MANAGER Impression: Advanced degenerative spondylosis, as above. 2-3 mm retrolisthesis of C2 over C3.
== END 2024-06-20 15:45 | disposition home or self-care (01) ==
LOC: ANHIMG 15:46
PROVIDERS: PCP Internal Medicine; Visit Provider Internal Medicine
DX: M47.892 Other spondylosis, cervical region (principal); M43.12 Spondylolisthesis, cervical region
CPT/HCPCS: 72050

== ENCOUNTER 2024-09-26 10:06 | Outpatient (CLI) | payer MEDICARE, OTHER, SELFPAY ==
--- NOTE | ~2024-09-26 | CT_ITS ---
Clinical Indication: Hypertension CT Scan of the Chest and Abdomen, with Contrast: Technique: Contiguous sections were acquired throughout the chest and abdomen after intravenous admin istration of 100 cc of Omnipaque 350. Dose reduction technique was used on this scan by utilizing au tomated exposure control and iterative reconstruction technique. The dose-length product (DLP) was 69 1.68 mGy-cm. Comparison: 02/21/2023 Findings: There is no evidence of any significant mediastinal, hilar or axillary lymphadenopathy. The mediastin al soft tissues appear normal. No pulmonary embolus. No aortic aneurysm or dissection. There is no evidence of pleural or pericardial effusion. The lungs are clear, aside from minimal dependent atelectatic changes. 2.0 hypodense right hepatic lobe mass is similar to prior exam, most likely hemangioma (axial image 9 3). Additional peripherally enhancing hypodense lesion at the right hepatic lobe is also essentially stable from prior exam (axial image 124). The spleen, pancreas, gallbladder, and adrenal glands are w ithin normal limits. Bilateral parapelvic renal cysts are present. No evidence of aortic aneurysm. N o lymphadenopathy. Moderate hiatal hernia present. Otherwise, visualized bowel loops are unremarkable. No ascites. Small fat-containing umbilical hernia noted. Impression: No acute abnormality evident. Stable hypodense hepatic lesions, most likely benign lesions such as hemangiomas. Bilateral parapelvic renal cysts. Moderate hiatal hernia. Small fat-containing umbilical hernia. Reviewed, dictated and finalized at [facility]. ATION ONCOLOGY NURSE Impression: No acute abnormality evident. Stable hypodense hepatic lesions, most likely benign lesions such as hemangioma s. Bilateral parapelvic renal cysts. Moderate hiatal hernia. Small fat-containing umbilical hernia.
--- OUTSIDE RECORDS SUMMARY | 2024-09-26 10:30 | XMS_ITS | Referral Summary ---
Author Organization [facility] Address [address] [place] [address] Care Team Providers Care Aerial Crop Duster Name Role Phone Cindy Pires RN Unavailable [phone] Uzair Samson MD Primary Care Provider [phone] Source Comments [facility],non-owned Affiliates and Associated Physician Practices is amultiple site organization consisting of ambulatory clinics and hospital sitesin [place], [place] and [place]. This disclosure is being madepursuant to the Care Everywhere program and may not contain all information available regarding this patient. Last updated 18.[facility] Allergies No known active allergies Medications * Be aware that medications may not be up to date on this document. Alwaysverify current medications with the patient. Medication Sig Dispensed Refills Start Date End Date Status enalapril (VASOTEC) 5 MG tablet Take 5 mg by mouth 2 times daily. Active rosuvastatin (CRESTOR) 10 MG tablet Take 10 mg by mouth once daily. Active niacinamide 500 MG TABS tablet Take 500 mg by mouth once daily. Active aspirin EC (ECOTRIN) 81 MG tablet Take 81 mg by mouth once daily. Active fish oil/omega-3 fatty acids (FISH OIL) 1000 MG capsule Take 1,000 mg by mouth 2 times daily with morning and evening meal. Active multivitamin daily (THERAGRAN) tablet Take 1 Tab by mouth daily with food. Active Calcium Carb-Cholecalciferol (CALCIUM + D3) 600-200 MG-UNIT TABS Take 1 Tab by mouth 2 times daily. Active levothyroxine (SYNTHROID) 25 MCG tabletIndications:Hy pothyroidism Take 25 mcg by mouth daily before breakfast. Indications: Underactive Thyroid Active pantoprazole EC (PROTONIX) 20 MG tablet Take 20 mg by mouth once daily. Active hydrocodone-acetamin ophen (NORCO) 5-325 MG tablet Take 1-2 Tabs by mouth every 4 hours as needed for Pain. 30 Tab 0 11/14/2013 Active ibuprofen (MOTRIN) 600 MG tablet Take 1 Tab by mouth every 6 hours as needed for Pain. 60 Tab 1 11/14/2013 Active docusate sodium (COLACE) 100 MG capsule Take 1 Cap by mouth 2 times daily. 60 Cap 1 11/14/2013 Active Active Problems Problem Noted Date Diagnosed Date Anemia 11/13/2013 Social History Tobacco Use Types Packs/Day Years Used Date Smoking Tobacco: Never Alcohol Use Standard Drinks/Week Comments No 0 (1 standard drink = 0.6 oz pur e alcohol) Sex and Gender Information Value Date Recorded Sex Assigned at Not on file Gender Identity Not on file Sexual Orientation Not on file Last Filed Vital Signs Vital Sign Reading Time Taken Comments Blood Pressure 122/82 06/26/2014 9:31 AM MONONITROTOLUENE OPERATOR Pulse 101 11/14/2013 8:37 AM CDT Temperature 36.7 C (98 F) 11/14/2013 8:37 AM CDT Respiratory Rate 16 11/14/2013 8:37 AM CDT Oxygen Saturation 94% 11/14/2013 8:37 AM CDT Inhaled Oxygen Concentration - - Weight 82.1 kg (181 lb) 06/26/2014 9:31 AM MONONITROTOLUENE OPERATOR Height 165.1 cm (5' 5 ) 06/26/2014 9:31 AM MONONITROTOLUENE OPERATOR Body Mass Index 30.12 06/26/2014 9:31 AM MONONITROTOLUENE OPERATOR Functional Status Functional Status Response Date of Assess ment Is person deaf or have serious hearing difficult y? No 11/12/2013 Is person blind or have serious difficulty seein g? No 11/12/2013 Does person have serious dif ficulty walking/climbing stairs? No 11/12/2013 Does person have difficulty dressing/bathing? No 11/12/2013 Does person have difficulty doing errands alone? No 11/12/2013 Cognitive Status Response Date of Assessm ent Does person have difficulty concentrating/remembering/making decisions? No 11/12/2013 Plan of Treatment Not on file Medical Devices Implanted Type Area Turret Punch Operator Device Identifier Shelf Expiration Date Model / Serial / Lot Patch Mesh Mersilene 12 X 12in Implanted:Qty: 1 on 11/12/2013 by Melly Garvey MD at [facility] N/A: Pelvis [employer] 02/11/2017 RML / / [id number] Dev Sys Sgl Obtryx Implanted:Qty: 1 on 11/12/2013 by Melly Garvey MD at [facility] N/A: Vagina Productiv Scimed 07/14/2016 [id number] / / [id number] Advance Directives * Full Code (Latest Code Status on File) Date Activated Date Inactivated Comments 11/12/2013 1:18 PM 11/14/2013 12:58 PM Care Teams Aerial Crop Duster Relationship Specialty Start Date End Date Uzair Samson MD [address] [place] [id number] PCP - General 12/24/20 Cindy Pires, RN Strawberry Grower 11/13/13
--- OUTSIDE RECORDS SUMMARY | 2024-09-26 10:30 | XMS_ITS | Clinical Summary ---
Author Organization [facility] Address [address] [place] [address] Care Team Providers Care Flower Picker Name Role Phone Cindy Pires RN Unavailable [phone] Uzair Samson MD Primary Care Provider [phone] [facility],non-owned Affiliates and Associated Physician Practices is amultiple site organization consisting of ambulatory clinics and hospital sitesin [place], [place], [place] and [place]. This disclosure is being madepursuant to the Care Everywhere program and may not contain all informatio navailable regarding this patient. Last updated 18.[employer] [facility] Allergies No known active allergies Medications * [...] Problem Noted Date Diagnosed Date Anemia 11/13/2013 Family History Medical History Relation Name Comments Elevated Lipids Brother Pulmonary Embolism Mother fractured ankle Breast Cancer after age 50 or unknown Other 4 paternal aunts Elevated Lipids Sister Relation Name Status Comments Brother Mother Other Sister Social History Tobacco Use Types Packs/Day Years [...] Comments Blood Pressure 122/82 06/26/2014 9:31 AM MILL PLATFORM SUPERVISOR Pulse 101 11/14/2013 8:37 AM CDT Temperature 36.7 C (98 F) 11/14/2013 8:37 AM CDT Respiratory Rate 16 11/14/2013 8:37 AM CDT Oxygen Saturation 94% 11/14/2013 8:37 AM CDT Inhaled Oxygen Concentration - - Weight 82.1 kg (181 lb) 06/26/2014 9:31 AM MILL PLATFORM SUPERVISOR Height 165.1 cm (5' 5 ) 06/26/2014 9:31 AM MILL PLATFORM SUPERVISOR Body Mass Index 30.12 06/26/2014 9:31 AM MILL PLATFORM SUPERVISOR Plan of Treatment Health Maintenance Due Date Last Done Comments BONE DENSITY TESTING 1940 MEDICARE AWV 12 MONTHS 1942 DTAP/TDAP/TD VACCINES (1 - Tdap) 1961 PNEUMOCOCCAL VACCINE 50+ (1 of 1 - PCV) 1992 ZOSTER VACCINE (1 of 2) 1992 Respiratory Syncytial Virus (RSV) Vaccine Pt: or over 60 yrs (1 - 1-dose 75+ series) 2017 COVID-19 VACCINE (2023-2 5 season) 2024 INFLUENZA VACCINE (#1) 2024 DEPRESSION SCREENING 08/14/2024 HEPATITIS B VACCINE Aged Out No longe r eligible based on patient's age to complete this topic HIB VACCINE Aged Out No longer eligi ble based on patient's age to complete this topic HPV VACCINE Aged Out No longer eligi ble based on patient's age to complete this topic MENINGOCOCCAL (Group B) VACCINE Aged Out No longer eligible based on patient's age to complete this topic MENINGOCOCCAL VACCINE Aged Out No angel dawna eligible based on patient's age to complete this topic Medical Devices Implanted Type Area Bottom Loader Device Identifier Shelf Expiration Date Model / Serial / Lot Patch Mesh Mersilene 12 X 12in Implanted:Qty: 1 on 11/12/2013 by Melly Garvey MD at [facility] [place][note 2] N/A: Pelvis [employer] 02/11/2017 RML / / [id number] Dev Sys Sgl Obtryx Implanted:Qty: 1 on 11/12/2013 by Melly Garvey MD at [facility] [place][note 2] N/A: Vagina Kno[employer]med 07/14/2016 [id number] / / [id number] Advance Directives * Full Code (Latest Code Status on File) Date Activated Date Inactivated Comments 11/12/2013 1:18 PM 11/14/2013 12:58 PM Care Teams Flower Picker Relationship Specialty Start Date End Date Uzair Samson MD [address] [place] [id number] PCP - General 12/24/20 Cindy Pires, RN Executive Admin 11/13/13
--- OUTSIDE RECORDS SUMMARY | 2024-09-26 10:30 | XMS_ITS | Referral Summary ---
Author Organization [address] Address [address] [place] [id number] Care Team Providers Care Solutions Sales Consultant Name Role Phone Uzair Samson MD Primary Care Provider [phone] Allergies No known active allergies Medications enalapril (VASOTEC) 5 mg tablet Take 1 tablet (5 mg total) by mouth 2 (two) times a day 0 08/27/2018 Active famotidine (PEPCID) 40 mg tablet Take 1 tablet (40 mg total) by mouth daily 0 08/27/2018 Active omega 3-kkx-pef-fish oil 100-160-1,000 mg capsule Active multivitamin tabletIndicatio ns:Vitamin Deficiency Prevention Active metoprolol XL (TOPROL-XL) 25 mg 24 hr tablet 08/20/2019 Act mikey aspirin 81 mg enteric coated tablet Take 1 tablet (81 mg total) by mouth daily Active levothyroxine (SYNTHROID) 50 mcg tablet Take 1 tablet (50 mcg total) by mouth daily 12/15/2021 Active metoprolol XL (TOPROL-XL) 50 mg extended release tablet Take 1.5 tablets (75 mg total) by mouth 2 (two) times a day 12/31/2021 Active rosuvastatin (CRESTOR) 40 mg tablet 03/05/2022 Active cholecalciferol (Vitamin D3) 2000 unit tablet Active Active Problems Problem Noted Date Diagnosed Date Thyroid nodule 06/11/2024 Benign neoplasm of skin of face 09/04/2017 Lentigo 09/04/2017 Melanocytic nevus of trunk 09/04/2017 Senile angioma 09/04/2017 Asteatosis cutis 09/12/2016 Anemia 11/13/2013 Social History Tobacco Use Types Packs/Day Years Used Date Smoking Tobacco: Never Smokeless Tobacco: Never Tobacco Cessation:Counseling Given: Not Answered Comments Unknown Sex and Gender Information Value Date Recorded Sex Assigned at Not on file 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 [employer] Gender Identity Not on file Sexual Orientation Not on file Last Filed Vital Signs Vital Sign Reading Time Taken Comments Blood Pressure 113/76 03/06/2022 10:31 AM CDT Pulse 75 03/06/2022 10:31 AM CDT Temperature 36.8 C (98.2 F) 03/06/2022 10:31 AM CDT Respiratory Rate 18 06/10/2024 10:43 AM CDT Oxygen Saturation 95% 03/06/2022 10:31 AM CDT Inhaled Oxygen Concentration - - Weight 78 kg (172 lb) 06/10/2024 10:43 AM CDT Height 162.6 cm (5' 4 ) 06/10/2024 10:43 AM CDT Body Mass Index 29.52 06/10/2024 10:43 AM CDT Plan of Treatment Not on file Insurance MEDICARE [facility] MEDICARE [employer] MED[employer] Care Teams Solutions Sales Consultant Relationship Specialty Start Date End Date Uzair Samson MD [address] [place] [address] PCP - General 08/13/17
--- OUTSIDE RECORDS SUMMARY | 2024-09-26 10:30 | XMS_ITS | Patient Health Summary ---
Author Organization [facility] Address [address] [place] [address] Care Team Providers Care Medical Insurance Claims Specialist Name Role Phone Cindy Pires RN Unavailable [phone] Uzair Samson MD Primary Care Provider [phone] Note from [facility],non-owned Affiliates and Associated Physician Practices is amultiple site organization consisting of ambulatory clinics and hospital sitesin [place], [place], [place] and [place]. This disclosure is being madepursuant to the Care Everywhere program and may not contain all information available regarding this patient. Last updated 18.[facility] Moblication Allergies No known active allergies Medications * Be aware that medications may not be up to date on this document. Alwaysverify current medications with the patient. * enalapril (VASOTEC) 5 MG tablet Take 5 mg by mouth 2 times daily. * rosuvastatin (CRESTOR) 10 MG tablet Take 10 mg by mouth once daily. * niacinamide 500 MG TABS tablet Take 500 mg by mouth once daily. * aspirin EC (ECOTRIN) 81 MG tablet Take 81 mg by mouth once daily. * fish oil/omega-3 fatty acids (FISH OIL) 1000 MG capsule Take 1,000 mg by mouth 2 times daily with morning and evening meal. * multivitamin daily (THERAGRAN) tablet Take 1 Tab by mouth daily with food. * Calcium Carb-Cholecalciferol (CALCIUM + D3) 600-200 MG-UNIT TABS Take 1 Tab by mouth 2 times daily. * levothyroxine (SYNTHROID) 25 MCG tablet Take 25 mcg by mouth daily before breakfast. Indications: Underactive Thyroid * pantoprazole EC (PROTONIX) 20 MG tablet Take 20 mg by mouth once daily. * hydrocodone-acetaminophen (NORCO) 5-325 MG tablet(Started 11/14/2013) Take 1-2 Tabs by mouth every 4 hours as needed for Pain. * ibuprofen (MOTRIN) 600 MG tablet(Started 11/14/2013) Take 1 Tab by mouth every 6 hours as needed for Pain. 1 refill left * docusate sodium (COLACE) 100 MG capsule(Started 11/14/2013) Take 1 Cap by mouth 2 times daily. 1 refill left Active Problems Problem Noted Date Diagnosed Date [...] Comments Blood Pressure 122/82 06/26/2014 9:31 AM WOOD MECHANIST Pulse 101 11/14/2013 8:37 AM CDT Temperature 36.7 C (98 F) 11/14/2013 8:37 AM CDT Respiratory Rate 16 11/14/2013 8:37 AM CDT Oxygen Saturation 94% 11/14/2013 8:37 AM CDT Inhaled Oxygen Concentration - - Weight 82.1 kg (181 lb) 06/26/2014 9:31 AM WOOD MECHANIST Height 165.1 cm (5' 5 ) 06/26/2014 9:31 AM WOOD MECHANIST Body Mass Index 30.12 06/26/2014 9:31 AM WOOD MECHANIST Medical Devices Implanted Type Area Video Machines Mechanic Device Identifier Shelf Expiration Date Model / Serial / Lot Patch Mesh Mersilene 12 X 12in Implanted:Qty: 1 on 11/12/2013 by Melly Garvey MD at Formerly named [facility] N/A: Pel[employer] 02/11/2017 RML / / [id number] Dev Sys Sgl Obtryx Implanted:Qty: 1 on 11/12/2013 by Melly Garvey MD at Formerly named [facility] N/A: Vagina [employer] 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 Transcriptions Document, Scanned - 11/15/2013 7:01 PM CDT Scanned Document CARDIAC SERVICES ORD ERABLES * (ABNORMAL) GLUCOSE - POINT OF CARE (11/14/2013 8:37 AM CDT) Only the most recent of3 resultswithin the time period is included. Pathologist [facility] Glucose WB/POC 154(H) 70 - 106 mg/dL 11/14/2013 9:23 AM CDT [facility] Blood BLOOD SPECIMEN / Unknown 11/14/2013 8:37 AM CDT 11/14/2013 9:23 AM CDT Melly Garvey MD LAB - POINT OF CARE ORDERABLES [facility] [address] [place] [address] * (ABNORMAL) CBC W/O DIFFERENTIAL (11/13/2013 7:56 AM CDT) Pathologist [facility] WBC 8.0 4.4 - 10.7 x10^9/L 11/13/2013 8:08 AM CDT [facility] RBC 3.50(L) 3.80 - 5.20 x10^12/L 11/13/2013 8:08 AM CDT [facility] Hemoglobin 10.1(L) 12.0 - 15.6 gm/dL 11/13/2013 8:08 AM CDT [facility] Hematocrit 31.7(L) 35.9 - 45.5 % 11/13/2013 8:08 AM CDT [facility] MCV 90.6 80.7 - 98.3 fl 11/13/2013 8:08 AM CDT [facility] MCH 28.9 26.7 - 34.0 pg 11/13/2013 8:08 AM CDT [facility] MCHC 31.9 30.8 - 35.9 gm/dL 11/13/2013 8:08 AM CDT [facility] Platelet Count 146(L) 153 - 416 x10^9/L 11/13/2013 8:08 AM CDT [facility] RDW-CV 14.4 12.1 - 14.9 % 11/13/2013 8:08 AM CDT [facility] MPV 11.1 9.4 - 12.9 fl 11/13/2013 8:08 AM CDT [facility] Blood BLOOD SPECIMEN / Unknown Lab Venipuncture / Unknown 11/13/2013 7:56 AM CDT 11/13/2013 8:01 AM CDT Melly Garvey MD LAB - HEMATOLOGY ORD ERABLES Performing Organization Address City/State/[facility] Co de Phone Number [facility] [address] [place] [address] * (ABNORMAL) BASIC METABOLIC PANEL (CALCIUM TOTAL) (11/13/2013 7:56 AM CDT) [facility] Signature Glucose 121(H) 74 - 106 mg/dL 11/13/2013 8:21 AM CDT [facility] Sodium 141 136 - 145 mmol/L 11/13/2013 8:21 AM CDT [facility] Potassium 4.0 3.5 - 5.1 mmol/L 11/13/2013 8:21 AM CDT [facility] Chloride 107 98 - 107 mmol/L 11/13/2013 8:21 AM CDT [facility] CO2 29 22 - 31 mmol/L 11/13/2013 8:21 AM CDT [facility] Calcium 7.9(L) 8.5 - 10.1 mg/dL 11/13/2013 8:21 AM CDT [facility] Anion Gap 5 5 - 15 mmol/L 11/13/2013 8:21 AM CDT [facility] BUN 14 7 - 21 mg/dL 11/13/2013 8:21 AM CDT [facility] Creatinine 0.43(L) 0.50 - 1.30 mg/dL 11/13/2013 8:21 AM CDT [facility] eGFR by MDRD >60 mL/min/1.7 3m2 11/13/2013 8:21 AM T [facility] eGFR by MDRD >60 mL/min/1.7 3m2 11/13/2013 8:21 AM [facility] Blood BLOOD SPECIMEN / Unknown Lab Venipuncture / Unknown 11/13/2013 7:56 AM CDT 11/13/2013 8:01 AM CDT Melly Garvey MD LAB - CHEMISTRY MINOR [facility] Organization Address City/State/ZIP Co de Phone Number [facility] [address] [place] [address] * URINALYSIS ROUTINE W/REFLEX TO CULTURE (11/12/2013 8:15 AM CDT) Color UA Yellow Straw, Yellow, Dark Yellow 11/12/2013 8:41 AM T [facility] Clarity UA Clear 11/12/2013 8:41 AM T [facility] Specific [place] UA 1.026 1.005 - 1.030 11/12/2013 8:41 AM T [facility] pH UA 7.0 5.0 - 8.0 pH 11/12/2013 8:41 AM CDT [facility] Protein UA Negative Negative 11/12/2013 8:41 AM CDT [facility] Blood UA Negative Negative 11/12/2013 8:41 AM CDT [facility] Leukocyte UA Negative Negative 11/12/2013 8:41 AM CDT [facility] Nitrite UA Negative Negative 11/12/2013 8:41 AM CDT [facility] Glucose UA Negative Negative 11/12/2013 8:41 AM T [facility] Ketone UA Negative Negative 11/12/2013 8:41 AM CDT [facility] Bilirubin UA Negative Negative 11/12/2013 8:41 AM CDT [facility] Urobilinogen UA 0.2 0.1 - 1.0 EU/dL 11/12/2013 8:41 AM CDT [facility] Reflex Status Culture not indicated 11/12/2013 8:41 AM CDT [facility] Urine URINE SPECIMEN OBTAINED BY CLEAN CATCH PROCEDURE / Unknown 11/12/2013 8:15 AM CDT 11/12/2013 8:30 AM CDT Melly Garvey MD LAB - URINALYSIS ORD ERABLES Performing Organization Address City/State/[facility] Co de Phone Number [facility] [address] [place] [address] Care Teams Medical Insurance Claims Specialist Relationship Specialty Start Date End Date Uzair Samson MD [address] [place] [address] PCP - General 12/24/20 Cindy Pires, RN Solution Engineer 11/13/13
--- OUTSIDE RECORDS SUMMARY | 2024-09-26 10:30 | XMS_ITS | Clinical Summary ---
Author Organization [address] Address [address] [place] [id number] Care Team Providers Care Tube Coater Name Role Phone Uzair Samson MD Primary Care Provider [phone] Allergies No known active allergies Medications enalapril (VASOTEC) 5 mg tablet Take 1 tablet (5 mg total) by mouth 2 (two) times a day 0 08/27/2018 Active famotidine (PEPCID) 40 mg tablet Take 1 tablet (40 mg total) by mouth daily 0 08/27/2018 Active omega 7-rau-ypq-fish oil 100-160-1,000 mg capsule Active multivitamin tabletIndicatio [...] angioma 09/04/2017 Asteatosis cutis 09/12/2016 Anemia 11/13/2013 Surgical History Surgery Date Site/Laterality Comments HYSTERECTOMY BLADDER REPAIR EYE SURGERY Cataracts Medical History Medical History Date Comments HTN (hypertension) Cataracts, bilateral Acid reflux Thyroid disease Family History Medical History Relation Name Comments Heart disease Brother Lung cancer Father Cancer Sister Relation Name Status Comments Brother Father Sister Social History Tobacco Use Types Packs/Day Years Used Date Smoking Tobacco: Never Smokeless Tobacco: Never Tobacco Cessation:Counseling Given: Not Answered Comments Unknown Sex and Gender Information Value Date Recorded Sex Assigned at Not on file Legal Sex Female 8:00 PM [employer]AM[employer] Gender Identity Not on file Sexual Orientation Not on file Obstetrics History Last Filed Vital Signs Vital Sign Reading [...] 06/10/2024 10:43 AM CDT Plan of Treatment Health Maintenance Due Date Last Done Comments Depression Screening 1942 Fall Risk Assessment 1942 Osteoporosis Screening-Bone Density Scan 1942 Hepatitis B Screening 1960 Well Visit 65+ 2007 Zoster Vaccine (2 of 3) 06/17/2008 04/22/2008 Pneumococcal vaccine 65+ (3 of 3 - PPSV23 or PCV20) 10/09/2019 10/09/2014, 06/04/2007 DTaP/Tdap/Td Vaccine (2 - Td or Tdap) 05/18/2020 05/18/2010 Influenza Vaccine (#1) 2024 9, 05/15/2018, 05/24/2017, Additional history exists Insurance MEDICARE [employer] [place] [employer]IC[employer] [place] [employer]UAL [employer] MEDICARE Care Teams Tube Coater Relationship Specialty Start Date End Date Uzair Samson MD [address] [facility] [place], [place] [id number] PCP - General 08/13/17
--- OUTSIDE RECORDS SUMMARY | 2024-09-26 10:30 | XMS_ITS | Continuity of Care Document ---
Author Organization [facility] Address [address] [place] [address] [address] [place] [address] Phone Care Team Providers Care Airport Operations Specialist Name Role Phone Vega Paul MD, MD Unavailable Unavailable Allergies, Adverse Reactions, Alerts Substance Reaction Status Criticality No Known Allergies Active No Inform ation Medications Medication Instructions Dosage Effective Dates (start - stop) Status Comments Tirosint 25 mcg capsule take 1 capsule by oral route every day 25 MCG - Active enalapril maleate 5 mg tablet take 1 tablet by oral route every day 5 MG - Active pantoprazole 40 mg tablet,delayed release take 1 tablet by oral route every day 40 MG - Active rosuvastatin 10 mg tablet take 1 tablet by oral route every day 10 MG - Active Fish Oil Concentrate 1,000 mg capsule - Active aspirin 81 mg tablet,delayed release take 1 tablet by oral route every day 81 MG - Active multivitamin tablet take 1 tablet by ora l route every day with food - Active Procedures Procedure Date CATARACT SURG W/IOL, 1 STAGE CATARACT SURG W/IOL, 1 STAGE EYE EXAM, NEW PATIENT REFRACTION MEDICARE DILATED EXAM RIGHT EYE DILATED EXAM LEFT EYE OPHTHALMIC BIOMETRY OPHTHALMIC BIOMETRY EYE EXAM WITH PHOTOS MICROFLUID DOREEN TEARS MCR ONLY 018 MICROFLUID DOREEN TEARS MCR ONLY 018 PHARMACY 2 EYES Advance Directives Directive Yes / No Effective Date File Name No Information Encounters Encounter Description Practice Location Reason(s) For Visit Diagnoses Date Provider Providers Copied on Encounter [facility], [address] [place] [address], [id number], tel:[phone] [address] [place] [address] [facility] [place] No Information 8 Humberto Ferrari. [address], [address], [place], [place], [id number] , [place]. tel:[phone] Referring Provider: Vega Gómez, [address], [place], [place], [id number]. tel:[phone] [facility], [address] [place] [address], [id number], tel:[phone] [address] [place] [address] [facility] [place] No Information 8 Humberto Ferrari. [address], [address], [place], [place], [id number] , [place]. tel:[phone] Referring Provider: Vega Gómez, [address], [place], [place], [id number]. tel:[phone] [facility], [address] [place] [address], [id number], tel:[phone] OPH CONSULT [facility]UL[facility] CABRERA Cataract evaluation (chief complaint)Hy pertensive retinopathy evaluation (chief complaint) Early dry stage nonexudative age-related macular degeneration of left eyeAge-related nuclear cataract, bilateralKerat oconjunct sicca, not specified as Sjogren's, bilateralOther vitreous opacities, bilateral 8 Humberto Ferrari. [address], [address], [place], [place], [id number] , [place]. tel:[phone] Referring Provider: Vega Paul MD P, [address], [place], [place], [id number]. tel:[phone] Family History Family Member Type Diagnosis Age At Onset Mother Problem (finding) Macular degeneration Payers Payer name Insurance type Covered libertarian ID Authoriza tion(s) [place] [id number] [facility] [id number] Social History Type Description Quantity Date Captured Comments Sex Female Smoking Status No Information Chief Complaint And Reason For Visit No Information Plan Of Treatment Date Type Action Status No Information History Of Present Illness Encounter Date Complaint History Of Prese nt Illness Cataract evaluation The 77 year old female presents for evaluation of Cataract evaluation in the right > left. It started about 4 month(s) ago. It affects both near and far vision. The symptom is constant. The condition is limiting patient's night driving due to halos and glare, states difficult time seeing street signs. patient ref by [facility]. Manley for further evaluation and treatment. Optical Biometry, Optos and Tear lab ordered today [address] Hypertensive retinopathy evaluat ion The patient is present for evaluation of Hypertensive retinopathy evaluation in the right > left. It started about 1 year(s) ago. The symptom is constant. The condition is stable on current medication, followed by Dr. Uzair Samson. 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
== END 2024-09-26 10:07 | disposition home or self-care (01) ==
PROVIDERS: PCP Internal Medicine; Visit Provider Internal Medicine
DX: I10 Essential (primary) hypertension (principal); N28.1 Cyst of kidney, acquired; K44.9 Diaphragmatic hernia without obstruction or gangrene; K42.9 Umbilical hernia without obstruction or gangrene; Z82.49 Family history of ischemic heart disease and other diseases of the circulatory system
CPT/HCPCS: 71275; 74175; Q9967